=== PATIENT | female | born 1945 | race Hispanic/Latino ===

== ENCOUNTER 2019-02-06 14:01 | Outpatient (CLI) | payer MEDICARE, MEDICAID ==
[~2019-02-06 14:01] MED LIST: Iopamidol 370 76% 100 ML VIAL ONE; Iopamidol 370 76% 50 ML VIAL FS ONE
[2019-02-06 16:00] LABS: Estimated GFR-MDRD - POC Greater than 90
--- NOTE | 2019-02-06 16:22 | CT ---
CT Abdomen Pelvis W Con HISTORY: Right-sided abdomen pain and distention. History of hernia repair COMPARISON: None. FINDINGS: The lung bases are clear. The liver shows diffuse fatty change it measures 17.5 cm in length. The spleen is within normal limit s. The pancreas is normal in appearance. The gallbladder has a normal CT appearance. Right and left adrenal glands and right and left kidneys are normal in size, a subcentimeter left valery al cyst is identified.. There is no significant periaortic or mesenteric adenopathy. There is colonic diverticulosis noted there is suggestion of wall thickening to the right colon the appendix i s normal. CT of pelvis performed with intravenous contrast enhancement: There is no evidence of adenopathy, mas s or free fluid. IMPRESSION: 1. Fatty change of liver. 2. Suggestion of wall thickening to the right colon some of this may just be on the basis of underdis tention but could indicate a colitis. Clinical correlation would be recommended. 3. Colonic diverticulosis.
== END 2019-02-06 14:02 | disposition home or self-care (01) ==
LOC: CT 14:01
PROVIDERS: ATTEND Family Medicine
DX: R19.01 Right upper quadrant abdominal swelling, mass and lump (principal); K76.0 Fatty (change of) liver, not elsewhere classified; K57.30 Diverticulosis of large intestine without perforation or abscess without bleeding
CPT/HCPCS: 74177; 82565

== ENCOUNTER 2019-06-04 08:31 | Outpatient (CLI) | payer MEDICARE, MEDICAID ==
--- NOTE | 2019-06-04 10:17 | MRI ---
MRI LUMBAR SPINE WITHOUT CONTRAST: 06/04/2019 HISTORY: Low back pain. Right-sided radiculopathy. TECHNIQUE: Multiplanar, multisequence MR imaging of the lumbar spine obtained without contrast. FINDINGS: There is mild increased STIR signal involving the anterior aspect of the T12 vertebral body on the ri ght, likely on the basis of degenerative edema. There is associated anterior osteophyte formation in this region. On the basis of five lumbar type vertebral bodies the conus medullaris terminates at the L1-L2 level. T12-L1: Disk desiccation and mild bilateral facet hypertrophy present with no significant central can al or neural foraminal stenosis. L1-L2: Intervertebral disk height and signal intensity within normal limits. No significant central c anal or neural foraminal stenosis. L2-L3: Mild disk bulge. Mild bilateral facet hypertrophy. No significant central canal or neural fora chandler stenosis. L3-L4: There is disk space narrowing, disk desiccation and vacuum disk formation. There is a small ri ght paracentral disk herniation with inferior migration, measuring approximately 7 mm in craniocaudal dimension. This causes a mild degree of left lateral recess stenosis. There is mild left neural fora chandler stenosis as well. L4-L5: There is disk desiccation, vacuum disk formation and mild disk bulge with mild bilateral facet hypertrophy. No significant central canal or neural foraminal stenosis. L5-S1: Bilateral facet hypertrophy noted. No significant central canal or neural foraminal stenosis. The visualized retroperitoneal structures demonstrate no acute findings. There is a retroaortic left renal vein noted. Incidentally noted sigmoid diverticulosis. IMPRESSION: Lumbar spine degenerative change as detailed above. POS: [facility]PC
== END 2019-06-04 08:32 | disposition home or self-care (01) ==
LOC: TBSIIMAG 08:31
PROVIDERS: ATTEND Neurological Surgery
DX: M54.5 Low back pain (principal); M47.816 Spondylosis without myelopathy or radiculopathy, lumbar region
CPT/HCPCS: 72148

== ENCOUNTER 2019-07-21 12:59 | Outpatient (CLI) | payer MEDICARE, MEDICAID ==
--- NOTE | 2019-07-21 13:41 | RAD ---
XR Knee Rt 4 View STANDARD HISTORY: Right anterior knee pain FINDINGS: No fracture or dislocation is identified. There is chondrocalcinosis. No significant osteophytosis or bony destruction is seen.
== END 2019-07-21 13:00 | disposition home or self-care (01) ==
LOC: BICRAD 12:59
PROVIDERS: ATTEND Family Medicine
DX: M25.561 Pain in right knee (principal); M11.261 Other chondrocalcinosis, right knee